=== PATIENT | female | born 1965 | race African-American/Black ===

== ENCOUNTER 2021-02-08 12:14 | Inpatient (IN) | payer OTHER ==
[~2021-02-08] VITALS: Ht 175.3 cm; Wt 103.0 kg
[2021-02-08 12:33] VITALS: BP 121/73
[2021-02-08 12:54] LABS: BASOPHILS 0.9 % (0.0-2.0); HEMATOCRIT 34.7 % (37.0-47.0); HEMOGLOBIN 11.3 gm/dL (12.0-15.0); LYMPHOCYTES 26.4 % (24.0-44.0); MCH 25.5 pg (26.0-34.0); MCHC 32.6 g/dL (28.0-37.0); MCV 78.2 fL (80.0-100.0); MONOCYTES 4.8 % (1.0-8.0); PLATELET COUNT 364 thou/uL (150-400); POLYS 66.9 % (36.0-66.0); RBC 4.43 mil/uL (4.20-5.00); RDW 15.6 % (10.5-14.5); WBC 5.9 thou/uL (4.0-11.0)
[2021-02-08 12:58] LABS: ANION GAP 8 mmol/L (7-16); BUN 69 mg/dL (7-18); CALCIUM 9.7 mg/dL (8.5-10.1); CHLORIDE 91 mmol/L (98-107); CO2 36 mmol/L (21-32); CREATININE 4.9 mg/dL (0.6-1.0); GLUCOSE 267 mg/dL (74-106); POTASSIUM 3.5 mmol/L (3.5-5.1); SODIUM 135 mmol/L (136-145)
[2021-02-08 13:08] LABS: ALBUMIN 4.2 g/dL (3.4-5.0); DIRECT BILIRUBIN < 0.1 mg/dL (<0.1-0.2); LIPASE 277 U/L (73-393); SGOT 27 U/L (15-37); SGPT 31 U/L (14-59); TOTAL BILIRUBIN 0.4 mg/dL (0.2-1.0); TOTAL PROTEIN 8.3 g/dL (6.4-8.2); TROPONIN-I <0.06 ng/mL (<0.06)
[2021-02-08 14:21] VITALS: BP 108/57
[2021-02-08 14:34] VITALS: BP 128/59
[2021-02-08 15:07] VITALS: BP 126/65
--- NOTE | 2021-02-08 15:38 | NUR ---
PT ADMITTED RELATED TO ACUTE RENAL FAILURE, VOMITING, DEHYDRATION. CM REVIEWED CHART AND SPOKE WITH CARE TEAM. CM MET WITH PT AT BEDSIDE THIS DAY. PT APPEARED TO BE A&O X4. CM ROLE INTRODUCED. PT INDICATED THAT SHE RESIDES IN A HOUSE WITH HER SPOUSE AND CHILDREN WITH 3 STEPS TO ENTER THROUGH THE GARAGE AND 10 STEPS TO BEDROOM INSIDE. 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 PT INIDCATED NO DME. PT INDICATED SHE PLANS TO RETURN HOME ONCE MEDICALLY STABLE. SHE STATED SHE DOESN'T ANTICIAPTE ANY NEEDS UPON DC. CM FOLLOWING REGARDING DC PLANNING.
[2021-02-08] MEDS ORDERED: HYDROCHLOROTHIA25 M1 PO (16:28)
[2021-02-08] MEDS ORDERED: LIPITOR 20 MG T20 M1 PO (16:28)
[2021-02-08] MEDS ORDERED: COZAAR 25 MG TA25 M1 PO (16:29)
[2021-02-08] MEDS ORDERED: METFORMIN HCL500 M3 PO (16:30)
[2021-02-08] MEDS ORDERED: SOLIQUA 100 UNIT3 ML SUBQ (16:34)
[2021-02-08] MEDS ORDERED: TRULICITY1.5 MG/0.5 SUBQ (16:35)
--- NOTE | 2021-02-08 17:20 | EKG ---
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1965 Requested By: Mariama Bourne Order Number: [id number] MD: Jason Bruner Measurements Intervals [place] Rate: 97 P: 40 ND: 140 QRS: 15 QRSD: 96 T: 61 QT: 400 QTc: 508 Interpretive Statements Sinus rhythm Probable left atrial enlargement Minimal ST elevation, anterior leads Prolonged QT interval Artifact in lead(s) I,II,III,aVR,aVL,aVF,V1,V2,V3,V4,V5,V6 and baseline wander in lead(s) II,III,aVF No previous ECG available for comparison Electronically Signed On 02-08-2021 17:19:49 CDT by Jason Bruner [email or web address] <ELECTRONICALLY SIGNED> By: Jason Bruner MD, FAC 02/08/21 1719 1222 1222 Jason Bruner MD, [facility] /EPI
--- NOTE | 2021-02-08 18:14 | NUR ---
Received pt from the ER, VS stable. Alert and oriented x 4, steady on her gait. Pt states she is just here for the work up for her kidneys. No signs or verbalizations og distress noted. POC followed, consults called. Nephrology to come and see the pt tomorrow.
[2021-02-08 19:49] VITALS: BP 130/59
--- NOTE | 2021-02-09 03:33 | NUR ---
PT CARE ASSUMED WITH PT IN BED WATCHING TV.PT IS A/O X4.PT IS UP AD LENA.PT DENIED PAIN, NAUSEA/VOMITING.PT IS STRICT I AND O.IV ACCESS ON LAC WITH NS AT 126.PT IS ON ROOM AIR.WILL CONTINUE TO MONITOR
[2021-02-09 04:45] LABS: HEMATOCRIT 29.6 % (37.0-47.0); HEMOGLOBIN 9.9 gm/dL (12.0-15.0); MCH 26.3 pg (26.0-34.0); MCHC 33.5 g/dL (28.0-37.0); MCV 78.6 fL (80.0-100.0); RBC 3.77 mil/uL (4.20-5.00); RDW 15.3 % (10.5-14.5); WBC 5.1 thou/uL (4.0-11.0)
[2021-02-09 05:10] LABS: ANION GAP 5 mmol/L (7-16); BUN 63 mg/dL (7-18); CALCIUM 8.6 mg/dL (8.5-10.1); CHLORIDE 100 mmol/L (98-107); CO2 35 mmol/L (21-32); GLUCOSE 139 mg/dL (74-106); MAGNESIUM 2.2 mg/dL (1.8-2.4); POTASSIUM 3.2 mmol/L (3.5-5.1); SODIUM 140 mmol/L (136-145); TROPONIN-I <0.06 ng/mL (<0.06)
[2021-02-09 05:13] LABS: CREATININE 3.3 mg/dL (0.6-1.0)
[2021-02-09 07:33] VITALS: BP 130/74
--- NOTE | 2021-02-09 11:02 | NUR ---
ORDERS RECEIVED FOR EVAL AND TREAT. Pt IS UP AD LENA PER NOTES. SPOKE WITH Pt WHO STATES SHE IS HAVING NO DIFFICULTY WITH MOBILITY, BALANCE OR STRENGTH AND HOPING TO LEAVE SOON. Pt DECLINING A FORMAL P.T. EVAL BUT SOUNDS LIKE SHE IS SAFE FOR HOME WHEN MEDICALLY CLEAR
--- NOTE | 2021-02-09 11:57 | 2DMMODE ---
[facility] [place] [address] 2 D/M-MODE ECHOCARDIOGRAM Name: LAMONT VENTURA Room #: 459-P ADM IN M.R.#: [id number] Admission: 02/08/21 Attend Phys: Cb Flores MD Discharge: Date of : 69 Report #: [id number] THIS REPORT FOR: cc: Edward Mcgrath James A. DO Santiago, Patrick MD [facility] ~ APPROVED REPORT Study performed: 02/09/2021 10:18:56 EXAM: Comprehensive 2D, Doppler, and color-flow Echocardiogram Patient Location: Bedside Room #: 459 Status: on-call BSA: 2.18 HR: 90 bpm BP: 130/74 mmHg Rhythm: NSR Other Information Study Quality: Adequate Indications Diabetes Chest Pain Hypertension/HDD 2D Dimensions RVDd: 34.41 mm IVSd: 13.04 (7-11mm) LVOT Diam: 20.79 (18-24mm) LVDd: 52.07 mm PWd: 11.72 (7-11mm) Ascending Ao: 26.73 (22-36mm) LVDs: 37.70 (25-40mm) Aortic Root: 30.35 mm IVC: 21.00 mm Volumes Left Atrial Volume (Systole) Single Plane 4CH: 65.86 mL Single Plane 2CH: 84.16 mL LA ESV Index: 36.00 mL/m2 Aortic Valve AoV Peak Eric.: 1.77 m/s AO Peak Gr.: 12.56 mmHg LVOT Max P.29 mmHg LVOT Max V: 1.15 m/s [facility] [address] [address] 2 D/M-MODE ECHOCARDIOGRAM Name: LAMONT VENTURA Room #: 459-P [facility] IN ..#: [id number] Admission: 02/08/21 Attend Phys: Cb Flores, Discharge: Date of : 69 Report #: [id number] CELIA Vmax: 2.20 cm2 Mitral Valve E/A Ratio: 0.6 MV Decel. Time: 174.99 ms MV E Max Eric.: 1.04 m/s MV A Eric.: 1.66 m/s MV PHT: 50.75 ms IVRT: 124.57 ms Pulmonary Valve PV Peak Eric.: 1.17 m/s PV Peak Gr.: 5.50 mmHg Pulmonary Vein P Vein S: 0.81 m/s P Vein A: 0.23 m/s P Vein D: 0.46 m/s P Vein A Dur.: 76.1 msec P Vein S/D Ratio: 1.76 Tricuspid Valve RAP Estimate: 5.00 mmHg Left Ventricle The left ventricle is normal size. Mild concentric left ventricular hypertrophy. The left ventricular systolic function is normal. The left ventricular ejection fraction is within the normal range. LVEF is 60-65%. Mild diastolic dysfunction is present (impaired relaxation pattern). Right Ventricle The right ventricle is normal size. The right ventricular systolic function is normal. Atria The left atrium size is normal. The right atrium size is normal. Aortic Valve The aortic valve is normal in structure. No aortic regurgitation is present. There is no aortic valvular stenosis. Mitral Valve The mitral valve is normal in structure. Mild mitral regurgitation. No evidence of mitral valve stenosis. Tricuspid Valve The tricuspid valve is normal in structure. Trace tricuspid [facility] [address] 2 D/M-MODE ECHOCARDIOGRAM Name: LAMONT VENTURA Room #: 459-P [facility] IN M.R.#: [id number] Admission: 02/08/21 Attend Phys: Cb Flores, Discharge: Date of : 69 Report #: [id number] regurgitation. Unable to assess PA pressure. Pulmonic Valve The pulmonary valve is normal in structure. There is no pulmonic valvular regurgitation. Great Vessels The aortic root is normal in size. IVC is upper limits of normal in size and collapses >50% with inspiration. Pericardium There is no pericardial effusion. <Conclusion> Normal left ventricular size with mild concentric hypertrophy Ejection fraction 60% Normal right ventricular size/function Normal atrial size Color-flow Doppler study was performed of the aortic/mitral/tricuspid/pulmonary valve Normal aortic valve structure and function Mild mitral valve insufficiency Trace tricuspid valve insufficiency No pericardial effusion Normal aortic root size. <ELECTRONICALLY SIGNED> By: Jason Bruner MD, FACC 02/09/21 1156 1156 1156 Jason Bruner MD, FACC /INF
--- NOTE | 2021-02-09 14:11 | NUR ---
ORDERS RECEIVED, CHART REVIEWED. UP AD LENA, DECLINED FORMAL PT EVAL. NO SELF CARE CONCERNS. ALSO DECLINING OT EVAL. APPEARS D/C PLAN IS HOME WITH NO NEEDS. PLEASE RECONSULT IF NEEDED.
[2021-02-09 15:53] LABS: % SATURATION 18 % (20-39); IRON 40 ug/dL (50-170); TIBC 223 ug/dL (250-450)
[2021-02-09 16:12] VITALS: BP 143/62
[2021-02-09 16:20] LABS: FERRITIN 90 ng/mL (8-252)
--- NOTE | 2021-02-09 16:29 | NUR ---
Assumed pt care at 7am.Pt in and out of bed to bathroom independently. Assessment completed.vss.Meds given as ordered and well tolerated.Dr Valle and Franc here ,new order noted. Stool sample obtained and sent to lab. No verbal c/o. Pt will possibly dc home in am if stable.Will continue to monitor.
[2021-02-09 19:57] VITALS: BP 163/80
[2021-02-09 21:23] VITALS: BP 180/86
--- NOTE | 2021-02-09 21:37 | NUR ---
PT ALERT AND ORIENTED X4. BP MODERATELY ELEVATED. MEDICATED WITH HYDRALAZINE 10 MG IV. RECHECKED LATER. BP INCREASED TO 180/86. PULSE 105. PT C/O JIMENEZ AT THAT TIME 12/17 AND LEFT EAR PAIN BELOW EAR 01/17. SHE STATED LEFT EAR FELT LIKE IT WAS DRAINING BUT COULD NOT SEE ANY DRAINAGE AND NO LIQUID FELT. SHE ALSO FELT LIKE SHE WAS YAWNING FREQUENTLY AFTER HYDRALAZINE WAS GIVEN FOR INITIAL BP. ALSO SHE STATED AFTER HYDRALAZINE GIVEN LEFT HER A " FUNNY TASTE IN HER NOUTH. ALL THE ABOVE INFORMATION CALLED TO VOCATIONAL ADVISER. WILL GIVE ES TYLENOL ORDERED WHEN AVAILABLE AND RECHECK BP. INSTRUCTED PT TO CL NS FOR HELP TO BR IF ANY WEAKNESS OR DIZZINESS FELT.
[2021-02-09 23:04] VITALS: BP 153/76
--- NOTE | 2021-02-10 00:59 | NUR ---
PT'S BP MODERATELY ELEVATED. NS OFF NOW SINCE PT WAS COMPLAINING SEVERAL TIMES THAT SHE IS VOIDING TOO MUCH AND GETTING SWOLLEN DESPITE DECREASED IV FLUID RATE TO 75. METOPROLOL GIVEN ORDERED.
[2021-02-10 03:58] VITALS: BP 166/89
[2021-02-10 06:00] VITALS: BP 146/71
[2021-02-10 07:40] VITALS: BP 153/73
[2021-02-10 09:21] LABS: ABSOLUTE NEUTROPHILS 2.6 thou/uL (1.4-8.2); BASOPHILS 1.2 % (0.0-2.0); EOSINOPHILS 3.1 % (0.0-3.0); HEMATOCRIT 35.2 % (37.0-47.0); HEMOGLOBIN 11.3 gm/dL (12.0-15.0); LYMPHOCYTES 35.8 % (24.0-44.0); MCH 25.5 pg (26.0-34.0); MCHC 32.1 g/dL (28.0-37.0); MCV 79.4 fL (80.0-100.0); MONOCYTES 5.3 % (1.0-8.0); PLATELET COUNT 320 thou/uL (150-400); POLYS 54.6 % (36.0-66.0); RBC 4.43 mil/uL (4.20-5.00); RDW 15.5 % (10.5-14.5); WBC 4.7 thou/uL (4.0-11.0)
[2021-02-10 09:37] LABS: ALBUMIN 3.9 g/dL (3.4-5.0); CALCIUM 9.5 mg/dL (8.5-10.1); PHOSPHORUS 2.7 mg/dL (2.6-4.7); POTASSIUM 3.6 mmol/L (3.5-5.1); TOTAL BILIRUBIN 0.2 mg/dL (0.2-1.0)
[2021-02-10] MEDS ORDERED: METOPROLOL TART25 MG PO (09:45)
[2021-02-10 10:28] LABS: URINE BILIRUBIN NEGATIVE (Negative); URINE BLOOD NEGATIVE (Negative); URINE CLARITY CLEAR; URINE COLOR YELLOW; URINE GLUCOSE-RANDOM* 3+ (Negative); URINE KETONES NEGATIVE (Negative); URINE LEUKOCYTES-REFLEX NEGATIVE (Negative); URINE NITRITE-REFLEX NEGATIVE (Negative); URINE PROTEIN (DIPSTICK) NEGATIVE (Negative); URINE UROBILINOGEN 0.2 E.U./dl (0.2-1.0)
[2021-02-10] MEDS ORDERED: HYDROCHLOROTHIA25 M1 PO (11:13)
[2021-02-10] MEDS ORDERED: PEPCID20 MG PO (11:14)
[2021-02-10] MEDS ORDERED: COZAAR 25 MG TA25 M1 PO (11:14)
[2021-02-10 12:19] VITALS: BP 153/73
--- NOTE | 2021-02-10 13:46 | NUR ---
Assumed pt care at 7am.Pt in and out of bed independently.Pt tolerated meds and diet.Dr Valle here,dc order.Stat bmp amd urine culture done. Dc summary compile and reviewed with pt. Saline lock dc'd.At 1345 ,pt dc home ambulatory.
== END 2021-02-10 13:50 | disposition home or self-care (01) | DRG 640 ==
LOC: ER 12:14 → EROBS 14:16 → 4W 14:50
PROVIDERS: Emergency Medicine; ADMIT Internal Medicine; ATTEND Internal Medicine
DX: E86.0 Dehydration (principal); N17.0 Acute kidney failure with tubular necrosis; K52.9 Noninfective gastroenteritis and colitis, unspecified; I10 Essential (primary) hypertension; D64.9 Anemia, unspecified; E11.9 Type 2 diabetes mellitus without complications; E66.9 Obesity, unspecified; E87.6 Hypokalemia; E78.5 Hyperlipidemia, unspecified; Z98.891 History of uterine scar from previous surgery; Z68.33 Body mass index [BMI] 33.0-33.9, adult
CPT/HCPCS: 10040